=== PATIENT | female | born 1965 ===

== ENCOUNTER → 2018-09-14 | Outpatient (CLI) | payer OTHER ==
[~2018-09-14] MED LIST: AMLO5 PO; ATEN50 PO; BACL10 PO; DULOXETINE HCL60 MG PO; Hair, Skin & N1 EACH PO; Multivitamin1 EAC1 PO; PANT40 PO; TRAZ100 PO
== END | disposition home or self-care (01) ==
LOC: LAB SHORT 13:21 → LAB SRC 13:21
DX: N30.01 Acute cystitis with hematuria (principal)
CPT/HCPCS: 87077; 87086; 87186

== ENCOUNTER → 2018-10-03 | Outpatient (CLI) | payer OTHER | END | disposition home or self-care (01) | LOC: LAB SHORT 18:47 → LAB 18:47 | DX: N39.0 Urinary tract infection, site not specified (principal) | CPT/HCPCS: 87086 ==